=== PATIENT | female | born 2000 ===

== ENCOUNTER 2024-11-28 11:51 | Inpatient (IN) ==
[2024-11-28] MEDS ORDERED: OXYTOCIN 30 UNITS/NSS 30 UNITS/500 ML BAG IV PRN (14:35)
[2024-11-28] MEDS ORDERED: LIDOCAINE 1% LOCAL 20 ML VIAL INFIL PRN (14:35)
[2024-11-28 15:01] LABS: Hematocrit (blood only) 38.9 % (37.0-47.0); Hemoglobin 13.2 g/dl (12.0-16.0); Mean Corpuscular Hemoglobin 30.4 pg (25.0-34.0); Mean Corpuscular Hgb Conc 33.9 g/dL (32.0-36.0); Mean Corpuscular Volume 89.6 fL (80.0-100.0); Mean Platelet Volume 10.5 fL (9.4-12.4); Platelet Count 197 K/uL (130-400); RDW Coefficient of Variation 12.8 % (11.5-14.5); Red Blood Count 4.34 M/uL (4.20-5.40)
--- NOTE | 2024-11-28 15:02 | Obstetrical Progress Note ---
Date of Service November 28, 2024 Assessment & Plan (1) Prolonged gestation: Plan: Pt is a 24yo at 40+weeks here for induction f labor FHR: CAT1 ctx: Minimal ; 1cm/thick Jansen bulb with 35cplacen thru cervix starting Pitocin augmentation Admission and Anticipated Discharge Date Admission Date: November 28, 2024 Results & Data Vital Signs (Past 12 Hours) Vital Signs Temp Pulse Resp BP 11/28/24 13:43 16 11/28/24 13:43 16 11/28/24 13:15 18 11/28/24 13:15 18 11/28/24 12:33 36.8 C 18 11/28/24 12:18 71 138/80
[2024-11-28] MEDS: LACTATED RINGER'S 1,000 ML IV PRN (15:08)
[2024-11-28] MEDS: OXYTOCIN 30 UNITS/NSS 30 UNITS/500 ML BAG IV PRN (15:44)
[2024-11-28] MEDS ORDERED: fentaNYL citrate PF 100 MCG/2 ML VIAL EPI PRN (19:48)
[2024-11-28] MEDS ORDERED: ePHEDrine sulfate 50 MG/ML AMP IV PRN (19:48)
[2024-11-28] MEDS ORDERED: SODIUM CHLORIDE 0.9% PF INJ 10 ML VIAL EPI PRN (19:48)
[2024-11-28] MEDS ORDERED: BUPIVACAINE 0.25% PF 30 ML VIAL EPI PRN (19:48)
[2024-11-28] MEDS ORDERED: NALOXONE HCL 0.4 MG/1 ML VIAL/CARP IV PRN (19:48)
[2024-11-28] MEDS ORDERED: NALOXONE HCL 1 MG in SODIUM CHLORIDE 0.9% 1,000 ML IV PRN (19:48)
[2024-11-28] MEDS ORDERED: diphenhydrAMINE 50 MG/ML VIAL IV PRN (19:48)
[2024-11-28] MEDS ORDERED: LIDOCAINE 2% MPF LOCAL 5 ML VIAL EPI PRN (19:48)
[2024-11-28] MEDS ORDERED: NALBUPHINE HCL INJ 10 MG/ML AMP IV PRN (19:48)
[2024-11-28] MEDS ORDERED: ROPIVACAINE 0.5% PF 5 MG/ML 20 ML VIAL EPI PRN (19:48)
--- NOTE | 2024-11-28 19:50 | Anesthesiology Consultation ---
Date of Service November 28, 2024 Assessment & Plan (1) Encounter for pre-operative examination: Chart Review Chart Review: Patient NOT seen in Pre Admission Testing and Acceptable Risk for Labor Epidural Consults Requested none History Height/Weight Height: 5 ft 4 in Weight: 107.501 kg Allergies Allergy/AdvReac Type Severity Reaction Status Date / Time No Known Allergies Allergy Unverified 11/28/24 12:32 Medications Home Medications Medication Instructions Recorded Confirmed Last Taken escitalopram oxalate 10 mg tablet 10 mg PO DAILY 11/28/24 11/28/24 11/27/24 (Lexapro) vits no.124-ferrous fum 1 tab PO DAILY 11/28/24 11/28/24 11/27/24 27 mg iron-folic acid 800 mcg tablet ( Vitamin) Active Medications Generic Name Dose Route Start Last Admin Trade Name Freq PRN Reason Stop Dose Admin Lactated Ringer's 1,000 mls @ 125 mls/hr 11/28/24 14:35 11/28/24 15:08 Lr IV 11/30/24 14:34 125 mls/hr .Q8H PRN Administration L&D Protocol Protocol Oxytocin 30 units in 500 mls @ 10 mls/hr 11/28/24 14:41 11/28/24 19:10 Pitocin 30 Units/Nss IV 11/30/24 14:40 0.6 units/hr .Q24H PRN 10 mls/hr Labor Induction/Augmentation Titration Protocol 0.6 UNITS/HR Past Medical History Medical History (Updated 11/28/24 @ 19:49 by Km Crawford MD) Encounter for pre-operative examination ADHD Anxiety Exercise / Class Metabolic Activity II 4-5 Yardwork/Stairs/Walk up hill Past Surgical History Surgical History H/O cystoscopy History of tonsillectomy H/O wisdom tooth extraction Social History Smoking Status: Never smoker Hx Alcohol Use: No Hx Substance Use: No substance use type: does not use Physical Exam Vital Signs Last Vital Signs Temp 37.0 C 11/28/24 19:05 Pulse 89 11/28/24 20:24 Resp 20 11/28/24 19:05 BP 137/80 11/28/24 20:23 Pulse Ox 92 11/28/24 20:24 Testing Laboratory Results 11/28/24 14:44 Blood Type A Positive 11/28/24 14:44 Antibody Screen NEGATIVE 11/28/24 14:44
[2024-11-28] MEDS: fentaNYL citrate PF 100 MCG/2 ML VIAL EPI STA (20:27)
[2024-11-28] MEDS: fentANYL 2 MCG/ML BUPIVacaine 0.125%-NSS 100ML BAG EPI PRN (20:27)
[2024-11-28] MEDS: BUPIVACAINE 0.25% PF 30 ML VIAL EPI STA (20:27)
[2024-11-28] MEDS: LIDOCAINE 2%/EPINEPHRINE 1:200,000 20 ML PF EPI STA (20:27)
--- NOTE | 2024-11-28 20:51 | Obstetrical Progress Note ---
Date of Service November 28, 2024 Assessment & Plan (1) Prolonged gestation: Plan: Pt received epidural analgesia and is comfortable Jansen ballon spontaneously fell out FHR; CAT1 prior to AROM CTx 2-5min moderate intensity Pit; 10Mu AROM performed with Amnio hook FHR; decels 3-4 mins after AROM. returns to baseline after position change Clear fluid after AROM Admission and Anticipated Discharge Date Admission Date: November 28, 2024 Results & Data Vital Signs (Past 12 Hours) Vital Signs Temp Pulse Resp BP Pulse Ox 11/28/24 20:45 99 11/28/24 20:45 92 H 11/28/24 20:44 90 11/28/24 20:44 143/67 H 11/28/24 20:40 98 11/28/24 20:40 81 11/28/24 20:38 94 11/28/24 20:38 74 11/28/24 20:37 75 11/28/24 20:37 138/66 11/28/24 20:35 99 11/28/24 20:35 73 11/28/24 20:35 128/62 11/28/24 20:33 73 11/28/24 20:33 128/63 11/28/24 20:31 77 11/28/24 20:31 128/60 11/28/24 20:30 100 11/28/24 20:30 81 11/28/24 20:29 73 11/28/24 20:29 130/64 11/28/24 20:27 89 11/28/24 20:27 126/81 11/28/24 20:25 96 11/28/24 20:25 87 11/28/24 20:25 75 11/28/24 20:25 134/82 11/28/24 20:24 92 11/28/24 20:24 89 11/28/24 20:23 80 11/28/24 20:23 137/80 11/28/24 20:20 99 11/28/24 20:20 76 11/28/24 20:15 100 11/28/24 20:15 78 11/28/24 20:10 99 11/28/24 20:10 72 11/28/24 20:05 100 11/28/24 20:05 80 11/28/24 20:00 98 11/28/24 20:00 84 11/28/24 19:59 77 L 11/28/24 19:59 72 11/28/24 19:42 100 11/28/24 19:42 72 11/28/24 19:37 99 11/28/24 19:37 64 11/28/24 19:05 37.0 C 20 11/28/24 19:00 69 11/28/24 19:00 133/75 11/28/24 18:42 18 11/28/24 18:42 18 11/28/24 18:41 72 11/28/24 18:41 123/69 11/28/24 17:32 74 11/28/24 17:32 138/78 11/28/24 17:21 83 11/28/24 17:21 138/95 11/28/24 17:15 18 11/28/24 17:15 18 11/28/24 16:45 18 11/28/24 16:45 18 11/28/24 16:15 18 11/28/24 16:15 36.8 C 18 11/28/24 15:45 18 11/28/24 15:45 18 11/28/24 15:15 20 11/28/24 15:15 36.8 C 20 11/28/24 15:08 63 11/28/24 15:08 123/74 11/28/24 14:45 18 11/28/24 14:45 18 11/28/24 13:43 16 11/28/24 13:43 16 11/28/24 13:15 18 11/28/24 13:15 18 11/28/24 12:33 36.8 C 18 11/28/24 12:18 71 138/80
[2024-11-28] MEDS: BUPIVACAINE 0.25% PF 30 ML VIAL ONE (21:02)
[2024-11-28] MEDS: LIDOCAINE 2%/EPINEPHRINE 1:200,000 20 ML PF ONE (21:03)
[2024-11-28] MEDS: fentaNYL citrate PF 100 MCG/2 ML VIAL ONE (21:03)
[2024-11-28] MEDS: fentANYL 2 MCG/ML BUPIVacaine 0.125%-NSS 100ML BAG ONE (21:03)
[2024-11-28] MEDS: TERBUTALINE SULFATE 1 MG/ML VIAL SQ ONE (22:43)
--- NOTE | 2024-11-28 23:32 | Obstetrical Progress Note ---
Date of Service November 28, 2024 Assessment & Plan (1) Prolonged gestation: Plan: decel into the 80's x 9 mins Pit was at 12mu Resuscitation included the ff: Pt was placed on left and right side VE; 5cm/75%/0 station Pitocin was turned off Terbutaline was given IM scalp was placed- FHR returned to baseline Monitor FH Admission and Anticipated Discharge Date Admission Date: November 28, 2024 Results & Data Vital Signs (Past 12 Hours) Vital Signs Temp Pulse Resp BP Pulse Ox 11/28/24 23:25 100 11/28/24 23:25 102 H 11/28/24 23:20 100 11/28/24 23:20 88 11/28/24 23:15 99 11/28/24 23:15 100 H 11/28/24 23:15 81 11/28/24 23:15 140/72 11/28/24 23:10 99 11/28/24 23:10 100 H 11/28/24 23:05 99 11/28/24 23:05 77 11/28/24 23:00 99 11/28/24 23:00 82 11/28/24 22:59 82 11/28/24 22:59 137/80 11/28/24 22:55 99 11/28/24 22:55 96 H 11/28/24 22:50 99 11/28/24 22:50 99 H 11/28/24 22:45 99 11/28/24 22:45 109 H 11/28/24 22:40 98 11/28/24 22:40 131 H 11/28/24 22:39 91 11/28/24 22:39 103 H 11/28/24 22:35 99 11/28/24 22:35 81 11/28/24 22:31 56 L 11/28/24 22:31 132/63 11/28/24 22:30 99 11/28/24 22:30 57 L 11/28/24 22:25 100 11/28/24 22:25 72 11/28/24 22:20 100 11/28/24 22:20 60 11/28/24 22:15 100 11/28/24 22:15 63 11/28/24 22:15 67 11/28/24 22:15 142/83 H 11/28/24 22:13 91 11/28/24 22:13 72 11/28/24 22:10 100 11/28/24 22:10 73 11/28/24 22:05 99 11/28/24 22:05 67 11/28/24 22:00 99 11/28/24 22:00 62 11/28/24 22:00 118/58 L 11/28/24 21:55 100 11/28/24 21:55 63 11/28/24 21:50 100 11/28/24 21:50 61 11/28/24 21:45 100 11/28/24 21:45 63 11/28/24 21:45 129/58 L 11/28/24 21:40 100 11/28/24 21:40 65 11/28/24 21:35 99 11/28/24 21:35 62 11/28/24 21:30 36.7 C 11/28/24 21:30 99 11/28/24 21:30 73 11/28/24 21:30 62 11/28/24 21:30 132/63 11/28/24 21:26 91 11/28/24 21:26 67 11/28/24 21:25 94 11/28/24 21:25 67 11/28/24 21:20 99 11/28/24 21:20 64 11/28/24 21:16 65 11/28/24 21:16 140/80 11/28/24 21:15 99 11/28/24 21:15 63 11/28/24 21:10 99 11/28/24 21:10 64 11/28/24 21:05 99 11/28/24 21:05 76 11/28/24 21:00 99 11/28/24 21:00 72 11/28/24 20:59 104 H 11/28/24 20:59 155/95 H 11/28/24 20:57 94 11/28/24 20:57 87 11/28/24 20:55 98 11/28/24 20:55 90 11/28/24 20:53 77 11/28/24 20:53 128/59 L 11/28/24 20:50 100 11/28/24 20:50 73 11/28/24 20:48 92 H 11/28/24 20:48 138/62 11/28/24 20:45 99 11/28/24 20:45 92 H 11/28/24 20:44 90 11/28/24 20:44 143/67 H 11/28/24 20:40 98 11/28/24 20:40 81 11/28/24 20:38 94 11/28/24 20:38 74 11/28/24 20:37 75 11/28/24 20:37 138/66 11/28/24 20:35 99 11/28/24 20:35 73 11/28/24 20:35 128/62 11/28/24 20:33 73 11/28/24 20:33 128/63 11/28/24 20:31 77 11/28/24 20:31 128/60 11/28/24 20:30 100 11/28/24 20:30 81 11/28/24 20:29 73 11/28/24 20:29 130/64 11/28/24 20:27 89 11/28/24 20:27 126/81 11/28/24 20:25 96 11/28/24 20:25 87 11/28/24 20:25 75 11/28/24 20:25 134/82 11/28/24 20:24 92 11/28/24 20:24 89 11/28/24 20:23 80 11/28/24 20:23 137/80 11/28/24 20:20 99 11/28/24 20:20 76 11/28/24 20:15 100 11/28/24 20:15 78 11/28/24 20:10 99 11/28/24 20:10 72 11/28/24 20:05 100 11/28/24 20:05 80 11/28/24 20:00 98 11/28/24 20:00 84 11/28/24 19:59 77 L 11/28/24 19:59 72 11/28/24 19:42 100 11/28/24 19:42 72 11/28/24 19:37 99 11/28/24 19:37 64 11/28/24 19:05 37.0 C 20 11/28/24 19:00 69 11/28/24 19:00 133/75 11/28/24 18:42 18 11/28/24 18:42 18 11/28/24 18:41 72 11/28/24 18:41 123/69 11/28/24 17:32 74 11/28/24 17:32 138/78 11/28/24 17:21 83 11/28/24 17:21 138/95 11/28/24 17:15 18 11/28/24 17:15 18 11/28/24 16:45 18 11/28/24 16:45 18 11/28/24 16:15 18 11/28/24 16:15 36.8 C 18 11/28/24 15:45 18 11/28/24 15:45 18 11/28/24 15:15 20 11/28/24 15:15 36.8 C 20 11/28/24 15:08 63 11/28/24 15:08 123/74 11/28/24 14:45 18 11/28/24 14:45 18 11/28/24 13:43 16 11/28/24 13:43 16 11/28/24 13:15 18 11/28/24 13:15 18 11/28/24 12:33 36.8 C 18 11/28/24 12:18 71 138/80
[2024-11-28] MEDS: ONDANSETRON INJ 2 MG/ML 2 ML VIAL IV PRN (23:54)
[2024-11-29] MEDS ORDERED: ROPIVACAINE 0.5% 5 MG/ML 30 ML VIAL ONE (00:52)
[2024-11-29] MEDS ORDERED: LIDOCAINE 2%/EPINEPHRINE 1:200,000 20 ML PF ONE (00:52)
[2024-11-29] MEDS ORDERED: NURSING L&D Epidural Breakthrough Pain Update ONE (01:10)
--- NOTE | 2024-11-29 01:11 | Anesthesia Procedure Note ---
Date of Service November 29, 2024 Anesthesia Epidural Re-Dose Vital Signs Temp Pulse Resp BP Pulse Ox 37.1 C 98 H 20 128/69 98 11/29/24 00:00 11/29/24 01:05 11/28/24 19:05 11/29/24 01:05 11/29/24 01:05 Notes Pain Intensity: 1 Dilatation (cm): 7.5 Effacement (%): 75 Called by nursing to evaluate epidural as the patient is having increased pain. The epidural was re-dosed with the following medications (all medications via epidural route) after negative aspiration of the epidural catheter for CSF/HEME. 4 ml of 2% LIdocaine mixed with 4ml of 0.5% ropivicaine. After Epidural Re-Dose Mental Status: alert / awake / arousable Pain: improving with treatment Airway Patency, RR, SpO2: stable & adequate BP & HR: stable & adequate
[2024-11-29] MEDS: SODIUM CHLORIDE 0.9% PF INJ 10 ML VIAL EPI STA (04:06)
[2024-11-29] MEDS: ePHEDrine sulfate 50 MG/ML AMP ONE (04:06)
[2024-11-29] MEDS: SODIUM CHLORIDE 0.9% PF INJ 10 ML VIAL ONE (04:06)
[2024-11-29] MEDS: miSOPROStoL 200 MCG TAB PR ONE (06:05)
[2024-11-29] MEDS ORDERED: OXYTOCIN 30 UNITS/NSS 30 UNITS/500 ML BAG IV PRN (06:14)
[2024-11-29] MEDS ORDERED: bisacodyL 10 MG SUPP PR PRN (06:14)
[2024-11-29] MEDS ORDERED: HYDROCORTISONE ACETATE 25 MG SUPP PR PRN (06:14)
--- NOTE | 2024-11-29 06:14 | Delivery Summary ---
Vaginal Delivery Summary Date of Service November 29, 2024 Vaginal Delivery Summary DELIVERY NOTE Patient delivered a live infant female in left occiput anterior presentation there was no nuchal cord which was easily reduced. Infant was delivered and placed on mother's abdomen. Delayed cord clamping was performed. Cord blood is obtained Cord gasses are obtained Meconium is absent Placenta is spontaneously delivered. Placenta appears grossly normal and has 3 vessel cord Inspection of the perineum showed a first-degree midline laceration. Laceration is repaired in layers with 3-0 Vicryl in layers Rectal exam post repair showed good sphincter tone no sutures palpated in the rectum. Quantitative blood loss is 182 cc per Infants weight and scores are in the pediatric record Mother and baby are stable in in the recovery
[2024-11-29 06:36] LABS: Base Excess Cord Venous Blood -6.7 mEq/L (-7.7-1.9); Cord Venous Blood HCO3 19 mmol/L (18.4-26.8); Cord Venous Blood PCO2 39 mmHg (30.4-57.2); Cord Venous Blood PO2 26 mmHg (14.1-43.3); O2 Saturation Cord Venous Bld < 60.0 % (<68)
[2024-11-29 06:42] LABS: Base Excess Cord Arterial Bld -7.8 mEq/L (-9-1.8); CO2 Cord Arterial Blood 63 mmHg (39.1-73.5); HCO3 Cord Arterial Blood 22 mmol/L (19.7-28.5); Oxygen Sat Cord Arterial Blood < 60.0 % (<60); PO2 Cord Arterial Blood < 20 mmHg (4.1-31.7); pH Cord Arterial Blood 7.15 (7.1-7.38)
[2024-11-29] MEDS: IBUPROFEN 600 MG TAB PO PRN (06:43)
[2024-11-29] MEDS: ACETAMINOPHEN 325 MG TAB PO PRN (06:44)
[2024-11-29] MEDS: BENZOCAINE 20% SPRY 85 APPLN/85 GM CAN EXT PRN (06:44)
--- NOTE | 2024-11-29 07:06 | Anesthesia Procedure Note ---
Date of Service November 29, 2024 Anesthesia Post Epidural Note Vital Signs Vital Signs: Temp Pulse Resp BP Pulse Ox 98.8 F 93 H 18 122/68 96 11/29/24 06:40 11/29/24 07:02 11/29/24 06:40 11/29/24 07:02 11/29/24 06:15 Pain Intensity Right Back: Pain Intensity: 4 Abdomen: Pain Intensity: 2 Notes Mental Status: alert / awake / arousable and participated in evaluation Nausea / Vomiting: adequately controlled Pain: adequately controlled Airway Patency, RR, SpO2: stable & adequate BP & HR: stable & adequate Hydration State: stable & adequate Neuraxial Anesthesia: was administered and sensory block is resolving Anesthetic Complications: no major complications apparent and Pt Satisfied with anesthetic care Epidural: Removed without complications and With tip intact
[2024-11-29] MEDS: DIPHTHER/TETAN/PERTUS Vaccine (Tdap, Adol/Adult) 0.5mL IM ONE (08:24)
[2024-11-29] MEDS: PRENATAL VITAMIN 1 TAB PO SCH ×2 (08:26→19:12)
[2024-11-29] MEDS: DOCUSATE SODIUM 100 MG CAP PO SCH (08:26)
[2024-11-29] MEDS ORDERED: ESCITALOPRAM OXALATE 10 MG TAB PO SCH (10:15)
[2024-11-30 06:39] LABS: Hematocrit (blood only) 31.7 % (37.0-47.0); Hemoglobin 10.9 g/dl (12.0-16.0); Mean Corpuscular Hemoglobin 31.4 pg (25.0-34.0); Mean Corpuscular Hgb Conc 34.4 g/dL (32.0-36.0); Mean Corpuscular Volume 91.4 fL (80.0-100.0); Mean Platelet Volume 10.6 fL (9.4-12.4); Platelet Count 198 K/uL (130-400); RDW Coefficient of Variation 13.3 % (11.5-14.5); RDW Standard Deviation 43.8 fL (36.4-46.3); Red Blood Count 3.47 M/uL (4.20-5.40); White Blood Count 11.72 K/ul (4.8-10.8)
--- NOTE | 2024-11-30 09:23 | Obstetrical Progress Note ---
Date of Service November 30, 2024 Assessment & Plan (1) Normal course: Present on Admission?: No Plan continue routine course regular diet encourage ambulation discharge plan for tomorrow Subjective Ambulation: ambulating normally Current Pain Level(1-10): 0 Review of Systems All systems reviewed & are unremarkable except as noted in HPI & below Constitutional: + as per Subjective / HPI Respiratory: + as per Subjective / HPI Cardiovascular: + as per Subjective / HPI Physical Exam Constitutional WD/WN, vitals as above Respiratory normal respiratory effort, lungs clear to auscultation Cardiovascular RRR, no murmur, no edema Skin no rashes, warm and dry Psychiatric A+Ox3, euthymic affect Genitourinary deferred Results & Data Vital Signs (Past 12 Hours) Vital Signs Temp Pulse Resp BP O2 Del Method 11/30/24 04:32 36.5 C 93 H 14 114/72 Room Air 11/29/24 23:30 36.3 C L 83 16 129/84 Room Air
[2024-11-30 19:06] VITALS: O2SAT 98
[2024-11-30] MEDS ORDERED: bisacodyL 5 MG TABEC PO SCH (20:00)
[2024-12-01 07:13] LABS: Hematocrit (blood only) 33.3 % (37.0-47.0); Hemoglobin 11.3 g/dl (12.0-16.0)
--- NOTE | 2024-12-01 07:46 | Discharge Summary ---
Date of Service December 01, 2024 Admission HPI Per Admitting Provider labor , s/p [facility] Discharge Data Consultations None Procedures Performed [facility] Diabetes Follow Up Diabetes Follow Up: 6 weeks for 2 Hr GTT Hospital Course (1) Normal course: (2) Prolonged gestation: Plan discharge home instructions follow up in the office at 3 weeks and 6 weeks for course continue PNV, [place] Discharge Instructions ACTIVITY RECOMMENDATIONS: * Gradual return to full activity over the next 2-3 weeks. * No lifting - nothing heavier than baby over the next 2-3 weeks. * Do not engage in vigorous exercise, sexual activity or sports until cleared by your physician. * Do not drive or operate any motorized equipment until cleared by your physician. * You may shower/bathe daily. BREAST CARE: If you are not breast feeding: * Wear a supportive bra 24 hours a day for one to two weeks. * Avoid stimulating your breasts and nipples as much as possible during the first few weeks after delivery. * When taking a shower, have the warm water hit your back, not breasts. * When your breasts feel full, apply ice packs. Usually three to four times a day helps ease the discomfort. * Take a mild pain medication (Tylenol/Motrin) when you are uncomfortable. If breast feeding: * Use breast milk to lubricate nipples. Lansinoh cream may be used for sore nipples. You do not need to remove cream prior to breast feeding. If using a different brand of cream, check the label for directions regarding removal of cream prior to nursing. * Wear a supportive bra. * If having problems with breasts or breast feeding, call a [facility] consultant or your health care provider. EPISIOTOMY CARE: After delivery, if you have an episiotomy (stitches), the following steps will ease discomfort and aid healing. * For the first 24 hours after delivery, place ice packs next to your episiotomy to help reduce swelling. * After the first 24 hour-period, sitz baths, either portable or in the tub, are suggested. A shower with a shower arm sprayed over the episiotomy may be comforting. * Cathy care should be done after each voiding and bowel movement. Squirt warm water from a plastic bottle over the perineum (region of the body between the anus and urinary opening) and pat dry. * Use Dermoplast to ease discomfort. Shake container. [place] directly over the episiotomy. * Place a Tucks on a clean sanitary pad next to your episiotomy. OVER THE COUNTER MEDICATION: * For discomfort or pain, you may use Acetaminophen (Tylenol), Ibuprofen (Advil), or Naproxen (Aleve) following the package directions. * For constipation you may use Colace following the package directions. SPECIAL CARE INSTRUCTIONS: When you are discharged from the hospital, it is important for you to follow the instructions listed below: * During the first week at home, you should be able to care for yourself and your baby. In addition, the usual light household activities are encouraged. * Limit your activities to the way you feel. Do not try to clean the house or move furniture. Be sensible. * If you actively engage in sports and have done so up until the time of your delivery, you may resume these activities as soon as you feel able. This may take up to one month or even longer. Use good judgment. * Continue to take your vitamins for at least six weeks after the of your baby. * Your diet need not be limited unless you were on a special diet before your delivery. Breast-feeding mothers need around 2500 calories per day and at least 64-80 ounces of fluid per day (8 to 10 glasses). * You should eat foods from the four major food groups. Crash diets or fad diets are to be avoided. Eating lean meats, fresh fruits and vegetables, low-fat dairy products, high fiber foods and a regular exercise program, will help you get back to your pre- weight without putting your health at risk. * Constipation is sometimes a problem after delivery. Take a mild laxative as needed. If breast feeding, Milk of Magnesia is acceptable to use. You may use a suppository or Fleets enema if no episiotomy. * A daily shower or tub bath is suggested. Be sure to thoroughly and gently dry the perineum. * A bloody vaginal discharge will usually continue until around four weeks post . A small amount of bleeding may continue for as long as six weeks. Vaginal discharge changes from the bright red bleeding after delivery to pink then brownish and finally yellowish-pink before becoming white and disappearing. * Bleeding may increase with activity. Your first period may come in 4-8 weeks. If you are breast feeding, your period may be delayed even longer. * [place] (sex) can begin whenever both you and your partner feel comfortable and do not have any form of genital infection. It is recommended that you wait until after your return appointment and discuss with your physician. If you have questions, please talk to your health care practitioner. A condom should be used to prevent infection and . * Foreplay, gentle intercourse and lubrication is very important the first several times to prevent pain. A water-based lubricant such as K-Y jelly or Astroglide may be used. * Tampons may be used six weeks after delivery. * Douching should be avoided for 6 weeks after delivery. * If you have RH negative blood and your baby is RH positive, you will receive RHOGAM by injection prior to discharge. The nurse will give you a card to keep with you that has the date and place that you received RHOGAM after delivery. * During your care, you had a Rubella screen done to check for the presence of rubella antibodies in your blood. If your test was negative, you will receive a Rubella vaccine prior to discharge. This vaccine may cause a fever, soreness at the injection site and flu-like symptoms. If these symptoms persist, notify your health care practitioner. is not advised for three months after a Rubella vaccine. There is a higher chance of having a baby with defects if conceived within three months of getting the vaccine. * If you were discharged 24 hours from delivery or before 48 hours: Visiting nurses will come to your home 48 hours after discharge to assess you and your baby. The visiting nurse will meet with you while you are in the hospital to arrange a time and get directions to your home. * Verbalizes understanding of car seat law as reviewed with patient nursing. * Car Seat hand-out given and reviewed with patient by nursing. * Shaken baby information reviewed with patient by nursing. Call you doctor if: * Heavy bleeding (saturating several pads an hour) or passing clots the size of your fist. * A fever >101 degrees F (38.3 degrees C) on two occasions four hours apart and/or chills. * Unusual pain in the pelvic or vaginal areas. * "Baby Blues" lasting longer than two weeks. If you have any questions or concerns, call your health care practitioner at . FOLLOW-UP VISIT: * Please call the office at to schedule 3 and 6 week examination. It is important you keep this appointment. * It is important for you to make arrangements for either yearly or twice yearly check-ups thereafter.
[2024-12-01 08:54] VITALS: BP 120/76; PULSE 78; RESP 16; TEMP 97.5
--- NOTE | 2024-12-01 09:33 | Anesthesia Procedure Note ---
Date of Service December 01, 2024 Anesthesia Post Epidural Note Vital Signs Vital Signs: Temp Pulse Resp BP Pulse Ox O2 Del Method 36.4 C L 78 16 120/76 98 Room Air 12/01/24 07:22 12/01/24 07:22 12/01/24 07:22 12/01/24 07:22 12/01/24 07:22 12/01/24 07:22 Pain Intensity Right Back: Pain Intensity: 4 Abdomen: Pain Intensity: 5 Notes Mental Status: alert / awake / arousable and participated in evaluation Nausea / Vomiting: adequately controlled Pain: adequately controlled Airway Patency, RR, SpO2: stable & adequate BP & HR: stable & adequate Hydration State: stable & adequate Neuraxial Anesthesia: was administered and sensory block resolved Anesthetic Complications: no major complications apparent and Pt Satisfied with anesthetic care Epidural: Removed without complications and With tip intact
== END 2024-12-01 12:10 | disposition home or self-care (01) | DRG 807 ==
LOC: 4S1 11:51 → 4E2 11-29 08:45